=== PATIENT | female | born 1970 | race Caucasian/White ===

== ENCOUNTER 2021-04-10 21:35 | Emergency (ER) | payer OTHER ==
[~2021-04-10] VITALS: Ht 154.9 cm; Wt 82.8 kg
[2021-04-10 21:43] VITALS: BP 142/80
[2021-04-10 23:20] LABS: BASO % 0.5 % (0.0-1.0); EOS # 0.2 10^3/uL (0.0-0.5); EOS % 2.4 % (0.0-3.0); HEMATOCRIT 37.2 % (36.0-47.0); HEMOGLOBIN 12.7 g/dl (12.0-15.5); LYMPH # 2.5 10^3/uL (1.5-5.0); LYMPH % 30.4 % (24.0-44.0); MEAN CORPUSCULAR HEMOGLOBIN 31.7 pg (27.0-33.0); MEAN CORPUSCULAR HGB CONC 34.1 g/dl (32.0-36.5); MEAN CORPUSCULAR VOLUME 92.8 fl (80.0-96.0); MONO # 0.5 10^3/uL (0.0-0.8); NEUTROPHILS % 60.6 % (36.0-66.0); PLATELET COUNT, AUTOMATED 283 10^3/uL (150-450); RED BLOOD COUNT 4.01 10^6/uL (4.00-5.40); WHITE BLOOD COUNT 8.2 10^3/uL (4.0-10.0)
[2021-04-10] MEDS ORDERED: ISOVUE-370 76% 100ML VIAL As Ordered ONE (23:22)
[2021-04-10 23:57] LABS: C REACTIVE PROTEIN QUANTITATIV < 0.30 MG/DL (0.00-0.30); FREE T4 1.04 NG/DL (0.76-1.46)
[2021-04-10 23:59] LABS: MONO REFLEX EBV COMP NEGATIVE (NEGATIVE)
[2021-04-11 00:11] LABS: ERYTHROCYTE SEDIMENTATION RATE 8 mm/hr (0-20)
--- NOTE | 2021-04-11 01:36 | REPVR ---
PROCEDURE INFORMATION: Exam: CT Neck With Contrast Exam date and time: 04/11/2021 1:05 AM Age: 50 years old Clinical indication: Neck pain; Additional info: Left anterior neck pain/swelling TECHNIQUE: Imaging protocol: Computed tomography images of the neck with contrast. Radiation optimization: All CT scans at this facility use at least one of these dose optimization techniques: automated exposure control; mA and/or kV adjustment per patient size (includes targeted exams where dose is matched to clinical indication); or iterative reconstruction. Contrast material: ISOVUE 370; Contrast volume: 75 ml; Contrast route: INTRAVENOUS (IV); COMPARISON: No relevant prior studies available. FINDINGS: Nasopharynx: Unremarkable. Oropharynx: Unremarkable. No significant tonsillar enlargement. Hypopharynx: Unremarkable. Larynx: Ovoid cystic fluid collection in the left vallecula measuring 6 x 6 x 9 mm. Retropharyngeal space: Unremarkable. Submandibular/Parotid glands: Normal. Glands are normal in size. Thyroid: Right thyroid nodule measuring 6 mm and heterogeneous isthmic nodule measuring 12 x 12 x 18 mm. Lymph nodes: Unremarkable. No lymphadenopathy. Trachea: Visualized trachea is unremarkable. Lungs: Unremarkable as visualized. Bones/joints: Unremarkable. No acute fracture. Soft tissues: Unremarkable. No significant soft tissue swelling. IMPRESSION: 1. Ovoid cyst filling the left vallecula measuring 6 x 6 x 9 mm of uncertain etiology and may reflect a plugged lingual salivary gland duct. 2. Thyroid nodules measuring up to 12 x 12 x 18 mm in the isthmus. No follow-up is recommended. 3. Otherwise negative CT soft tissue neck. No mass or adenopathy. COMMENTS: Consistent with the [employer]'s Incidental Findings Committee white paper (J Am Danyelle Radiol 2015): In patients aged 35 years and older with an incidental thyroid nodule equal to or greater than 1.[address], MRI or extrathyroidal US, further evaluation with dedicated thyroid US is recommended for patients with normal life expectancy and without comorbidities. For smaller nodules without suspicious features, no further evaluation or follow up is recommended. Electronically signed by: Rio De La Torre On 04/11/2021 01:36:21 AM
--- NOTE | 2021-04-11 06:38 | ED PDOC ---
Post-Departure Follow-Up ct neck faxed to [facility] for [facility]. pt left ama Kyara Diaz MD Apr 11, 2021 06:38
[2021-04-13 16:09] LABS: EBV VIRAL CAPSID AG IgG >600.0 U/mL (0.0-17.9); EBV VIRAL CAPSID AG IgM <36.0 U/mL (0.0-35.9)
== END 2021-04-11 02:30 | disposition left against medical advice (07) ==
LOC: M ED 21:35
DX: R07.0 Pain in throat (principal); E03.9 Hypothyroidism, unspecified; I10 Essential (primary) hypertension; Z91.040 Latex allergy status; Z53.20 Procedure and treatment not carried out because of patient's decision for unspecified reasons
CPT/HCPCS: 36415; 70491; 80047; 84439; 84443; 85025; 85652; 86140; 86308; 86664; 86665; 99284; Q9967